=== PATIENT | female | born 1990 | race Caucasian/White ===

== ENCOUNTER 2022-08-14 16:45 | Outpatient (CLI) | payer OTHER, SELFPAY ==
[2022-08-14 17:08] VITALS: PULSE 74; O2SAT 98
[2022-08-14 17:18] VITALS: PULSE 67; TEMP 37.3; O2SAT 97; O2SAT 98
[2022-08-14 17:19] VITALS: BP 114/64; PULSE 73
[2022-08-14 17:43] VITALS: BMI 28.7
[2022-08-14 18:13] LABS: ROM Internal Control Test YES-OK TO RESULT pt. (Internal QC); ROM Patient Test Negative (Negative)
--- NOTE | 2022-08-15 02:16 | OB.TRI.PN ---
Progress Notes Progress Note: at 23w5d Presented to labor and delivery for possible rupture of membranes. Was working and felt a large gush of fluid. No vaginal bleeding, good movement and no contractions. Laboratory Studies: Laboratory Tests 08/14/22 Range/Units 17:25 Vag Amniotic Fld Detect Negative (Negative) FHR 135 Assessment & Plan (1) Vaginal discharge during : (2) 23 weeks gestation of : PLAN: Plan 1) ROM plus negative and not grossly ruptured. 2) PTL precautions reviewed 3) D/C home
== END 2022-08-14 18:25 | disposition home or self-care (01) ==
LOC: WP 17:06 → WPOUT 17:06
PROVIDERS: PCP Internal Medicine; Referring Provider Advanced Practice Midwife; Visit Provider Advanced Practice Midwife
DX: O23.592 Infection of other part of genital tract in pregnancy, second trimester (principal); Z3A.23 23 weeks gestation of pregnancy
CPT/HCPCS: 59025; 59050; 84112; 99221; G0378

== ENCOUNTER 2022-11-30 06:50 | Inpatient (IN) | payer OTHER, SELFPAY ==
[2022-11-30] VITALS (48 sets, daily range): BP systolic 93–127; BP diastolic 50–81; PULSE 67–107; TEMP 36.2–37; O2SAT 83–100; BMI 34.3
--- NOTE | 2022-11-30 08:06 | HP.PCM.OB_ITS ---
HPI - General General Date of Admission: 11/30/22 HPI Narrative MARIBEL KAN, is a 32 F who presents at 39.1 weeks gestation for elective induction of labor. complicated by anemia, thrombocytopenia, uterine fibroid, and LGA. Dilapan placed yesterday in office. Maternal Data Information KARTHIK Calculator Estimated Delivery Date Method Current WG Current Estimate 12/06/22 Manual 39w 1d PFSH PFSH Medical History Anxiety Depression Folliculitis Former smoker Uterine fibroid Home Medications Aspir-81 81 mg PO.IVFORM DAILY 08/14/22 [History Last Taken Unknown] Prenatabs FA 1 tab PO.IVFORM DAILY 08/14/22 [History Last Taken Unknown] loratadine 10 mg tablet (Claritin) 10 mg PO DAILY allergies 11/30/22 [History Last Taken 11/30/22 06:15] Allergy/AdvReac Type Severity Reaction Status Date / Time Penicillins Allergy Severe Hives Verified 11/30/22 07:23 Family History Brother Autism Grandmother Diabetes CAD (coronary artery disease) Grandfather CAD (coronary artery disease) Aunt Spina bifida Mother H/O thyroidectomy Other Cystic fibrosis Visit Details OB Flowsheet Initial Weight: Not Recorded Date -?-?-?-?-?-?-?-?-?-?-?-?- EGA Weight BP Urine Prot -?-?-?-?-?-?-?-?-?-?-?-?- Glucose FHR FuHt Pres Dilation -?-?-?-?-?-?-?-?-?-?-?-?- Effaced St Visit Note 11/30/22 -?-?-?-?-?-?-?-?-?-?-?-?- 39w 1d 213 lb -?-?-?-?-?-?-?-?-?-?-?-?- -?-?-?-?-?--?-?-?-?-?-?-?- ROS Eyes Eyes: Denies blurry vision, change in vision or spots in vision ENT HEENT: Denies dizziness or headache(s) Cardiovascular Cardiovascular: Denies abdominal pain, chest pain or dyspnea Respiratory/Chest Respiratory/Chest: Denies cough, dyspnea, shortness of breath at rest or shortness of breath with exertion Gastrointestinal Gastrointestinal: Denies abdominal pain, diarrhea or vomiting Genitourinary Genitourinary: Denies change in urinary stream, difficulty urinating or dysuria Musculoskeletal Musculoskeletal: Reports none Integumentary Integumentary: Denies rash Neurologic Neurologic: Denies dizziness, headache(s), memory loss or weakness Psychiatric Psychiatric: Reports none Vital Signs Vital Signs Vital Signs: Weight Weight: 213 lb Body Mass Index (BMI) 34.3 Physical Exam Const alert, oriented x3 and no apparent distress General Appearance: cooperative Orientation / Consciousness: awake Exam Limitations: no limitations HEENT normocephalic Head and Scalp: normal to inspection Eyes General Eye: normal appearance of both eyes Neck full ROM and no lymphadenopathy Lymph Lymphatic: no lymphadenopathy noted Chest inspection of chest normal Resp normal respiratory effort, normal air movement and clear to auscultation bilaterally Effort and Inspection: able to speak in complete sentences and symmetric chest movement Cardio regular rate and regular rhythm GI normal to inspection, nondistended, normoactive bowel sounds Manual OB Exam: presentation cephalic Back/Spine normal ROM Extremity full ROM and no calf tenderness Skin no rashes or lesions noted General Skin Exam: no breakdown Neuro oriented x3 and CN's II-XII intact bilaterally Psych mental status grossly normal and thought process normal Labs Labs Labs: No Data to Display GBS negative Assessment & Plan (1) Encounter for induction of labor: (2) 39 weeks gestation of : (3) Anemia affecting , antepartum: (4) Uterine fibroid: (5) Thrombocytopenia affecting : (6) LGA (large for gestational age) fetus affecting management of mother: PLAN: Plan Admit to L&D Start IV and run fluids per orders Dilapan- 5 rods removed without incident CE /-2 Start Pitocin IV at 2 mu/min and increase per orders GBS negative Epidural when indicated AROM after epidural placement Dr. Mazariegos notified of admission and is collaborating physician
[2022-11-30 09:00] LABS: Absolute Lymphocyte Count 1.23 X10^3/uL (0.83-4.51); Absolute Neutrophil Count 7.8 X10^3/uL (2.0-7.7); Basophil# 0.04 X10^3/uL; Basophil% 0.4 % (0-1); Eosinophil# 0.18 X10^3/uL; Eosinophils% 1.8 % (0-5); Hematocrit 37.5 % (37-47); Hemoglobin 12.8 g/dL (12.0-15.0); Lymphocyte # 1.23 X10^3/ul (0.83-4.51); Lymphocyte % 12.4 % (19-41); Mean Corp Hgb Conc 34.1 g/dL (32-36); Mean Corpuscular Hgb 31.6 pg (27.0-32.0); Mean Corpuscular Volume 92.6 fL (81-99); Mean Platelet Vol. 11.7 fl (6.2-12.0); Monocyte# 0.62 X10^3/uL; Monocyte% 6.2 % (0-10); NRBC Flagged by Analyzer 0 % (0-5); Neutrophil % 78.4 % (47-70); Platelet Count 126 K/mm3 (150-450); RBC Distribution Width CV 14.2 % (11.6-14.6); Red Blood Count 4.05 M/mm3 (4.2-5.4)
[2022-11-30] MEDS: Lactated Ringers 1,000 ML 200 ML IV ×3 (09:30→20:09)
[2022-11-30] MEDS: Oxytocin 15 Units/NS 250ml 15 UNITS/250 ML IV.SOLN 2 UNITS IV (09:34)
[2022-11-30 09:41] LABS: Syphilis Antibodies Non-reactive
[2022-11-30] MEDS: LACTATED RINGERS 500 ML 999 ML IV ×2 (14:54→18:33)
[2022-11-30] MEDS: fentaNYL-bupivacaine (epidural) 100 ML BAG EPIDURAL ×2 (15:38→20:02)
--- NOTE | 2022-11-30 18:33 | PCM.PN.OB ---
Subjective Subjective Patient seen at bedside. Comfortable with epidural. Objective Data Objective Data Vital Signs: Vital Signs Temp Pulse BP Pulse Ox 97.1 F L 74 93/50 L 99 11/30/22 18:11 11/30/22 18:20 11/30/22 18:20 11/30/22 16:48 Weight: 213 lb Body Mass Index (BMI) 34.3 Intake & Output: Intake and Output for Last 24 Hours 11/28/22 11/29/22 11/30/22 23:59 23:59 23:59 Intake Total 1547.84 / 1547.84 Output Total 700 / 700 Balance 847.84 / 847.84 Lab / Micro Data Result Diagrams: 11/30/22 08:40 Labs: Laboratory Results - last 24 hr 11/30/22 08:40: WBC 10.0, RBC 4.05 L, Hgb 12.8, Hct 37.5, MCV 92.6, MCH 31.6, MCHC 34.1, RDW Std Deviation 48.0 H, RDW Coeff of Emilia 14.2, Plt Count 126 L, MPV 11.7, Immature Gran % (Auto) 0.800, Neut % (Auto) 78.4 H, Lymph % (Auto) 12.4 L, [place] % (Auto) 6.2, Eos % (Auto) 1.8, Baso % (Auto) 0.4, Absolute Neuts (auto) 7.8 H, Absolute Lymphs (auto) 1.23, Nucleated RBC % 0 11/30/22 08:40: Blood Type O POSITIVE, Antibody Screen NEGATIVE 11/30/22 08:40: Syphilis Total Ab Non-reactive ROS Eyes Eyes: Denies blurry vision, change in vision or spots in vision ENT HEENT: Denies dizziness or headache(s) Cardiovascular Cardiovascular: Denies abdominal pain, chest pain or dyspnea Respiratory/Chest Respiratory/Chest: Denies cough, dyspnea, shortness of breath at rest or shortness of breath with exertion Gastrointestinal Gastrointestinal: Denies abdominal pain, diarrhea or vomiting Genitourinary Genitourinary: Denies change in urinary stream, difficulty urinating or dysuria Musculoskeletal Musculoskeletal: Reports none Integumentary Integumentary: Denies rash Neurologic Neurologic: Denies dizziness, headache(s), memory loss or weakness Physical Exam Const alert and no apparent distress General Appearance: cooperative and comfortable Exam Limitations: no limitations HEENT normocephalic Eyes General Eye: normal appearance of both eyes Neck full ROM General: normal visual inspection Chest Chest: symmetrical chest wall rise Resp normal respiratory effort and normal air movement Effort and Inspection: symmetric chest movement Auscultation: clear to auscultation bilaterally Cardio regular rate and regular rhythm GI normal to inspection, nondistended, normoactive bowel sounds Back/Spine normal ROM Extremity full ROM and no calf tenderness General Extremity: normal exam except as noted Skin no rashes or lesions noted Neuro CN's II-XII intact bilaterally Psych mental status grossly normal Assessment & Plan (1) Spontaneous rupture of amniotic membranes: (2) Uterine fibroid: (3) LGA (large for gestational age) fetus affecting management of mother: (4) 39 weeks gestation of : (5) Encounter for induction of labor: PLAN: Plan SROM for clear fluid at 1445 CE 6/-2 Forebag ruptured and IUPC placed Cat. 1 tracing Pitocin at 12 mu /min - continue to increase per orders Continue position changes Anticipate
[2022-11-30] MEDS: Ondansetron 4 MG/2 ML Vial IV (21:03)
[2022-12-01] VITALS (26 sets, daily range): BP systolic 98–128; BP diastolic 54–70; PULSE 90–132; RESP 15–16; TEMP 36.3–37.3; O2SAT 97–100
[2022-12-01] MEDS: fentaNYL-bupivacaine (epidural) 100 ML BAG EPIDURAL ×2 (00:18→05:18)
[2022-12-01] MEDS: Oxytocin 15 Units/NS 250ml 15 UNITS/250 ML IV.SOLN 20 UNITS IV (03:15)
[2022-12-01] MEDS: Lactated Ringers 1,000 ML 200 ML IV (03:57)
[2022-12-01] MEDS: Oxytocin 15 Units/NS 250ml 15 UNITS/250 ML IV.SOLN 83 UNITS IV (07:30)
[2022-12-01] MEDS: Oxytocin 15 Units/NS 250ml 15 UNITS/250 ML IV.SOLN 167 UNITS IV (07:56)
--- NOTE | 2022-12-01 08:24 | OP.PCM_ITS ---
Assessment & Plan (1) (spontaneous vaginal delivery): (2) Laceration, obstetrical, second degree: (3) Care and examination of lactating mother: (4) Uterine fibroid: (5) Thrombocytopenia affecting : (6) LGA (large for gestational age) fetus affecting management of mother: Maternal Data Information KARTHIK Calculator Estimated Delivery Date Method Current WG Current Estimate 12/06/22 Manual 39w 2d Hungry Horse Doctor Who Attended Delivery: KelliShyam Vaginal Delivery Maternal Presentation Maternal Presentation: Elective Induction Maternal Presentation: at 39.1 weeks gestation for induction of labor for LGA. Dilapan placed in office. Type of Induction: Pitocin and - (Dilapan) Operative Information Date of Procedure: 12/01/22 Pre-Operative Diagnosis: Term gestation, induction of labor Post-Operative Diagnosis: , Live female Surgery / Procedure Performed: Spontaneous Vaginal Delivery Type of Anesthesia: Epidural Drain: Noriega to straight drain Estimated Blood Loss: 400 Time of Delivery: 07:20 Findings Description of Procedure: Patient pushing well with contractions. Dr. Mazariegos on unit and called to room during delivery. With good maternal effort, head delivered followed by anterior shoulder and remainder of body with minimal downward traction for less than 30 seconds. Cord clamped and cut immediately due to color and tone. Blacksmith Assistant in room. to warmer. Pitocin IV started for active management of the third stage of labor. Placenta delivered spontaneously and intact. Cord blood collected and sent. Second degree vaginal lacerations repaired in usual fashion using 3-0 Vicryl Rapid. Hemostasis obtained. Infant brought to patient and placed skin to skin. Fundus firm 2 below U. EBL [address] Mazariegos present for delivery. Presentation: Vertex Amniotic Membrane Rupture Type: Spontaneous Time of Membrane Rupture: 1445 Amniotic Fluid Description: Clear Placental Delivery Description: Spontaneous Placenta Disposition: [facility] Cord Vessel Description: 3 Vessels Cord Entanglement: Around neck x 1, loose Nuchal Cord Compression: Without compression Infant A Gender: Female (1 minute): 2 (5 minute): 9 Delayed Cord Clamping: No Post Vaginal Delivery Medications Given After Delivery: IV Pitocin Episiotomy Description: None Laceration: Vaginal Extension/lac and 2nd degree Complication Complications: None
[2022-12-01] MEDS: Ibuprofen 600 MG Tablet PO (13:50)
[2022-12-01] MEDS: Loratadine 10 MG Tablet PO (13:56)
--- NOTE | 2022-12-01 16:44 | CASEMGMT ---
Social Work Assessment Labor and Delivery Unit Patient Address [address] [place] [address]: Phone number: [phone] Date of Referral: 12/01/22 Time of Referral:? 829 Referred By: Nursing staff Date of Intervention: ??12/01/22 Time of Intervention:? 1529 Reason for Referral:? Verbal notification from nursing staff MOB would benefit from sw involvement due to anxiety. History obtained from: medical records and mother of baby (MOB) Kary and father of baby (FOB) Sean? Household composition:Residing at family home is parents and new baby, name not decided yet (Kristi Quinteros or Sruthi Quinteros) Patient's parent/guardian status:? Parents report that they have been together for 12 years, for almost two. FOB is involved and MOB reports is a big support for her. MOB denies DV/ abuse, reports that she is safe at home. Medical History: MOB reports that she has fibroids and as a result struggled with getting . Baby is first and delivery for mom, and first child for FOB. MB was induced and delivered baby on 12/01/22. Baby weighs 4435 grams and her apgars were 2 at one minute and 9 at five minutes. MOB reports that she delivered baby's head and then had body dystocia. Baby required PPV following delivery and then transitioned to room air. ? Educational Status:?Both parents graduated from high school and obtained college degrees in teaching. Neither parent has learning difficulties or problems with reading or writing. 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 She gets the summer off for maternity leave. 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 Supplies:??Parents report they have obtained all necessary baby items including crib, car seat, clothes, diapers and wipes. Parents state they had their baby shower over Memorial Day weekend and were able to check off almost everything they needed for baby off of their list. Childcare/Caregiver(s):? Parents report that they will be primary caregivers to patient until MOB returns to work the next school year. MOB states that she is not sure what they are planning to do for childcare at this time. They have friends and family members who are involved. Transportation:?? Both parents have their drivers license and reliable transportation. No transportation barriers at this time. Programs/Agencies Involved: ?None Children Services/Legal Issues:??? No prior involvement, no concerns warranting referral at this time. Behavioral Health Issues: ??Mental Health History:?FOElsy denies mental health history. MOB disclosed that she has been diagnosed with anxiety and depression. Sw educated parents on signs and symptoms of baby blues and post depression. Sw asked FOB to step out while sw provided MOB with [place] Depression Scale. MOB completed screen and her score was a 6. Sw encouraged MOB to get connected to community mental health supports and provided MOB with list of counseling agencies in [facility]. MOB stated that she is is appreciative of resources provdied. Sw also provided MOB with literature on and depression and anxiety. MOB denies current and history of SI. ?? Substance Use History:??MOB denies. Family History:???MOB denies family substance use history. ?Drug Screens: urine screen was negative. Family/Social Stressors:? MOB and FOB deny stressors at this time. Support Systems: Parents report they have a lot of friend and family who are supportive. Depression/Shaken Baby/Safe Sleeping: Sw provided education and information on signs and symptoms of baby blues and post depression. FOB is very supportive to MOB. Sw educated parents on shaken baby and ABC's of safe sleep. MOB asked questions regarding safe sleep using a pack n play. ASSESSMENT:? Parents engaged and interactive during assessment. Parents respectful towards each other and both observed interacting with baby attentively and lovingly. Parents open and receptive to sw involvement and support. PLAN:? MOB and to be discharged when medically ready. ?No other services requested or indicated. Yaneth Lorenz, SKI TOPPER, TIE UP WORKER
--- NOTE | 2022-12-01 17:04 | CASEMGMT ---
Maryse BELL met with MOB and FOB at bedside. Due to maternal mental health history of anxiety and depression, [place] Depression Scale completed. MOB score is 6. Resources provided for counseling agencies in [facility]. Yaneth Lorenz, FLIGHT RADIO OPERATOR, HEAT AND FROST INSULATOR HELPER
[2022-12-01] MEDS: Acetaminophen 500 MG Tablet 1000 MG PO (23:06)
[2022-12-02 04:00] VITALS: BP 110/74; PULSE 99; RESP 15
[2022-12-02] MEDS: Ibuprofen 600 MG Tablet PO ×3 (04:05→21:57)
[2022-12-02 09:37] VITALS: BP 117/72; PULSE 72; RESP 16; TEMP 36.4; O2SAT 98
--- NOTE | 2022-12-02 10:44 | PCM.PN.OB ---
Subjective Subjective Pt is doing well. Ambulating and voiding without difficulty. Having some vaginal soreness and discomfort. Tolerating regular diet without nausea or vomiting. No bowel movement yet. Lochia is normal. She denies lightheadedness, dizziness, chest pain, shortness of breath, leg pain. She desires to stay another night. Objective Data Objective Data Vital Signs: Vital Signs Temp Pulse Resp BP Pulse Ox O2 Del Method 97.5 F L 72 16 117/72 98 Room Air 12/02/22 09:37 12/02/22 09:37 12/02/22 09:37 12/02/22 09:37 12/02/22 09:37 12/02/22 09:37 Oxygen Delivery Method Room Air Weight: 213 lb Body Mass Index (BMI) 34.3 Intake & Output: Intake and Output for Last 24 Hours 11/30/22 12/01/22 12/02/22 23:59 23:59 23:59 Intake Total 3135.14 / 3135.14 2180.49 / 2180.49 Output Total 1100 / 1100 1600 / 1600 Balance 2035.14 / 2035.14 580.49 / 580.49 Lab / Micro Data Result Diagrams: 11/30/22 08:40 11/30/22 20:20 Physical Exam Const alert and no apparent distress General Appearance: comfortable Assessment & Plan (1) (spontaneous vaginal delivery): PLAN: Patient is day 1 from a vaginal delivery. Doing well other than some vaginal soreness. Baby is in special care nursery. Discussed option for discharge to hotel status today. Patient desires to stay admitted overnight. Anticipate discharge tomorrow. (2) Laceration, obstetrical, second degree:
[2022-12-02] MEDS: Loratadine 10 MG Tablet PO (12:08)
[2022-12-02 14:48] VITALS: BP 107/61; PULSE 85; RESP 16; TEMP 36.8; O2SAT 100
[2022-12-02 19:30] VITALS: BP 116/69; PULSE 84; RESP 15; TEMP 36.6; O2SAT 99
[2022-12-03 01:20] VITALS: BP 107/60; PULSE 76; RESP 24; TEMP 36.6; O2SAT 96
--- NOTE | 2022-12-03 05:38 | PCM.PN.OB ---
Subjective Subjective Doing well. Pain is well controlled. Still having some vaginal soreness. Lochia is normal. She is ambulating and voiding without difficulty. She offers no complaints this morning. Objective Data Objective Data Vital Signs: Vital Signs Temp Pulse Resp BP Pulse Ox O2 Del Method 98 F 76 24 H 107/60 96 Room Air 12/03/22 01:20 12/03/22 01:20 12/03/22 01:20 12/03/22 01:20 12/03/22 01:20 12/03/22 01:20 Oxygen Delivery Method Room Air Weight: 213 lb Body Mass Index (BMI) 34.3 Intake & Output: Intake and Output for Last 24 Hours 12/01/22 12/02/22 12/03/22 23:59 23:59 23:59 Intake Total 2180.49 / 2180.49 Output Total 1600 / 1600 Balance 580.49 / 580.49 Lab / Micro Data Result Diagrams: 11/30/22 08:40 11/30/22 20:20 Physical Exam Const alert and no apparent distress General Appearance: comfortable Resp normal respiratory effort GI soft to palpation and non-tender Assessment & Plan (1) (spontaneous vaginal delivery): PLAN: Patient is day 2 from vaginal delivery. Baby is in special care nursery. She is doing well and meeting milestones for discharge. Discharge instructions were reviewed. (2) Laceration, obstetrical, second degree:
--- NOTE | 2022-12-03 05:42 | DCINST_ITS ---
Discharge Instructions Diet Discharge Diet: No restrictions Activity Discharge Activity: Return to Normal Activity May resume sexual activity in: 6 weeks Ice area for (Minutes): 15 Weight Bearing Status: Weight bearing as tolerated Lifting Restrictions: Nothing heavier than baby Dressing / Incision Call your doctor if you observe: Fever of 101 or Higher, Coldness, Increased Pain, Numbness or Tingling, Change in Color, Inability to urinate, Inability to have a bowel movement, Using more than 1 pad per hour, Shortness of breath, Dizziness, Fainting spells, Swelling in the ankles, Chest pain, Increased palpitations (irregular heartbeat), Calf discomfort and Uncontrolled pain Cleanse incision/area with: Soap & Water Follow Up Care When: 1-2 weeks for early visit 6 weeks for visit Test Results: Test results from this visit will be discussed in further detail at your follow- up appointment, if applicable. Discharge Plan Admission Admit Date/Time: 11/30/22 06:50 Primary Reason for Your Visit: delivery Attending Provider: Shereen Oakley Primary Care Provider: Dyan Taylor Instructions Patient Instructions: After a Vaginal Discharge Orders/Prescriptions Prescriptions: New docusate sodium [Colace] 100 mg capsule 100 mg PO BID Qty: 30 0RF ibuprofen 600 mg tablet 600 mg PO Q6H PRN (Reason: pain) Qty: 30 0RF Continued Prenatabs FA 1 tab PO.IVFORM DAILY loratadine [Claritin] 10 mg Tablet 10 mg PO DAILY Discontinued Aspir-81 81 mg PO.IVFORM DAILY Referrals / Follow Up: Dyan Taylor MD [Primary Care Provider] - Disposition Disposition (needs filled in before D/C Order can be placed): Home, Self Care
--- NOTE | 2022-12-03 05:44 | DS.PCM_ITS ---
Providers Date of Admission: 11/30/22 Date of Discharge: 12/03/22 Primary Care Physician: Dr. Dyan Taylor MD Reason For Visit: VAG DELIVERY Diagnosis Discharge Diagnosis (1) (spontaneous vaginal delivery): Status: Acute Code(s): O80 - Encounter for full-term uncomplicated delivery Plan: Patient is day 2 from vaginal delivery. Baby is in special care nursery. She is doing well and meeting milestones for discharge. Discharge instructions were reviewed. (2) Laceration, obstetrical, second degree: Status: Acute Code(s): O70.1 - Second degree perineal laceration during delivery Medications at Discharge Home Medications Prenatabs FA 1 tab PO.IVFORM DAILY 08/14/22 loratadine 10 mg tablet (Claritin) 10 mg PO DAILY allergies 11/30/22 docusate sodium 100 mg capsule (Colace) 100 mg PO BID #30 caps 12/02/22 ibuprofen 600 mg tablet 600 mg PO Q6H PRN pain #30 tabs 12/03/22 Hospital Course Operations None Procedures - (Vaginal delivery) Summary of Care Provided Hospital Course: Patient presented at 39 weeks gestation for an elective induction of labor for LGA fetus. She had a spontaneous vaginal delivery. See operative report for details. On day 2 she was discharged home in good condition with follow-up in the office. Weight / BMI Weight Weight: 213 lb Body Mass Index (BMI) 34.3 ABG / Lab / Microbiology Data Result Diagrams: 11/30/22 08:40 11/30/22 20:20 D/C Instructions Discharge Diet: No restrictions May resume sexual activity in: 6 weeks Ice area for (Minutes): 15 Weight Bearing Status: Weight bearing as tolerated Call your doctor if you observe: Fever of 101 or Higher, Coldness, Increased Pain, Numbness or Tingling, Change in Color, Inability to urinate, Inability to have a bowel movement, Using more than 1 pad per hour, Shortness of breath, Diz ziness, Fainting spells, Swelling in the ankles, Chest pain, Increased palpitations (irregular heartbeat), Calf discomfort and Uncontrolled pain Cleanse incision/area with: Soap & Water When: 1-2 weeks for early visit 6 weeks for visit Meaningful Use Info Meaningful Use Diagnoses (Choose all that apply): None applicable Discharge Plan Admission Admit Date/Time: 11/30/22 06:50 Primary Reason for Your Visit: delivery Attending Provider: Shereen Oakley Primary Care Provider: Dyan Taylor Instructions Patient Instructions: After a Vaginal Discharge Orders/Prescriptions Prescriptions: New docusate sodium [Colace] 100 mg capsule 100 mg PO BID Qty: 30 0RF ibuprofen 600 mg tablet 600 mg PO Q6H PRN (Reason: pain) Qty: 30 0RF Continued Prenatabs FA 1 tab PO.IVFORM DAILY loratadine [Claritin] 10 mg Tablet 10 mg PO DAILY Discontinued Aspir-81 81 mg PO.IVFORM DAILY Referrals / Follow Up: Dyan Taylor MD [Primary Care Provider] - Disposition Disposition (needs filled in before D/C Order can be placed): Home, Self Care
--- NOTE | 2022-12-03 07:25 | NURSING ---
report given to Nick Mckeon RN who is assuming care of pt at this time
[2022-12-03 08:30] VITALS: BP 102/60; PULSE 77; RESP 16; TEMP 36.4; O2SAT 98
[2022-12-03] MEDS: Ibuprofen 600 MG Tablet PO (11:29)
[2022-12-03] MEDS: Loratadine 10 MG Tablet PO (11:29)
[2022-12-03] MEDS: Senna/Docusate Sodium 1 Tablet PO (11:30)
--- NOTE | 2022-12-03 12:39 | CON.PCM.LA_ITS ---
Assessment & Plan Assessment/Plan (1) Care and examination of lactating mother: PLAN: Educated on latching, pumping, hand expressing, shield use. will assist with feeds in SCN tomorrow. HPI Consult Data Date of Consult: 12/03/22 HPI Narrative HPI Narrative: MARIBEL KAN, is a 32 F who presents difficulty, pumping. History provided by the patient. [facility] Medical History Anxiety Depression Folliculitis Former smoker Uterine fibroid Home Medications Prenatabs FA 1 tab PO.IVFORM DAILY 08/14/22 [History Last Taken Unknown] loratadine 10 mg tablet (Claritin) 10 mg PO DAILY allergies 11/30/22 [History Last Taken 11/30/22 06:15] docusate sodium 100 mg capsule (Colace) 100 mg PO BID #30 caps 12/02/22 [Rx Last Taken Unknown] ibuprofen 600 mg tablet 600 mg PO Q6H PRN pain #30 tabs 12/03/22 [Rx Last Taken Unknown] Allergy/AdvReac Type Severity Reaction Status Date / Time Penicillins Allergy Severe Hives Verified 11/30/22 07:23 Family History Brother Autism Grandmother Diabetes CAD (coronary artery disease) Grandfather CAD (coronary artery disease) Aunt Spina bifida Mother H/O thyroidectomy Other Cystic fibrosis Social History Smoking Status: Former smoker ROS Constitutional Constitutional: Denies fatigue or fever(s) Integumentary Integumentary: Reports other Details: attempting to latch baby in SCN with each feed- difficulty latching at breast, has tried nipple shield, q 3 hours pumping- was getting drops and last pump getting 7 cc, breasts starting to feel more fu ll, denies any nipple pain ; Denies rash Exam General alert Respiratory Respiratory: normal respiratory effort Skin normal color and Negative for rash bilateral breasts soft, bilateral nipples slight reddened, no cracking present IBCLC Feeding Assessment Feeding Assessment Mother's feeding plans during 's hospitalization: Breastfeed Feeding Plan Feeding Plan: Continue to feed q 3 hours, offering breast and then pumping, baby being weaned off of IV today Interventions IBCLC/CLC Interventions: Nipple shield (has attempted to latch with and without shield, per mother was educated when shield was given ), Pumping, Hand expression and Breast Massage Education IBCLC/CLC Education: How to perform hand expression and [id number] Charges/Coding Visit Charges Inpatient E&M: 67195 Init Hosp L1
[2022-12-03 16:28] VITALS: BP 131/67; PULSE 76; RESP 16; TEMP 37.2; O2SAT 98
[2022-12-03] MEDS: Acetaminophen 500 MG Tablet 1000 MG PO (17:02)
== END 2022-12-03 17:00 | disposition home or self-care (01) | DRG 806 ==
PROVIDERS: Admitting Provider Advanced Practice Midwife; PCP Internal Medicine; Referring Provider Advanced Practice Midwife; Visit Provider Advanced Practice Midwife
DX: O36.63X0 Maternal care for excessive fetal growth, third trimester, not applicable or unspecified (principal); Z37.0 Single live birth; O99.12 Other diseases of the blood and blood-forming organs and certain disorders involving the immune mechanism complicating childbirth; D69.6 Thrombocytopenia, unspecified; O34.13 Maternal care for benign tumor of corpus uteri, third trimester; D25.9 Leiomyoma of uterus, unspecified; O69.2XX0 Labor and delivery complicated by other cord entanglement, with compression, not applicable or unspecified; O99.02 Anemia complicating childbirth; O70.1 Second degree perineal laceration during delivery; Z3A.39 39 weeks gestation of pregnancy; Z87.891 Personal history of nicotine dependence
CPT/HCPCS: 59025; 59050; 85025; 86780; 86850; 86900; 86901; 99221; J7120; G0378; J2405

== ENCOUNTER 2024-12-11 15:10 | Outpatient (CLI) | payer OTHER, SELFPAY ==
[2024-12-11] VITALS (8 sets, daily range): BP systolic 122–138; BP diastolic 67–76; PULSE 71–86; RESP 18; TEMP 37; O2SAT 99; BMI 34.1
[2024-12-11 16:14] LABS: Hematocrit 35.4 % (37-47); Hemoglobin 12.4 g/dL (12.0-15.0); Mean Corp Hgb Conc 35.0 g/dL (32-36); Mean Corpuscular Volume 91.0 fL (81-99); Mean Platelet Vol. 12.1 fl (6.2-12.0); Platelet Count 125 K/mm3 (150-450); RBC Distribution Width CV 12.7 % (11.6-14.6); RBC Distribution Width SD 41.5 fl (35.1-43.9); Red Blood Count 3.89 M/mm3 (4.2-5.4); White Blood Count 7.8 K/mm3 (4.4-11.0)
[2024-12-11 16:44] LABS: AST(SGOT) 29 U/L (<=31); Alanine Aminotransfer ALT/SGPT 31 U/L (<=34); Estimated Creatinine Clearance 134.86 ml/min (50-250)
[2024-12-11 16:54] LABS: Creatinine, Urine (random) 103.00 mg/dL (28.00-217.00); Protein, Urine (Random) 40.1 mg/dL (0.0-12.0); Protein:Creat Ratio 389 mg/g CRE (0-200)
[2024-12-11 17:34] LABS: Uric Acid 5.3 mg/dL (2.6-6.0)
== END 2024-12-11 18:15 | disposition home or self-care (01) ==
LOC: WPOUT 15:11 → WP 15:11
PROVIDERS: PCP Internal Medicine; Referring Provider Obstetrics & Gynecology; Visit Provider Obstetrics & Gynecology
DX: O36.63X0 Maternal care for excessive fetal growth, third trimester, not applicable or unspecified (principal); Z87.891 Personal history of nicotine dependence; Z3A.38 38 weeks gestation of pregnancy; O12.13 Gestational proteinuria, third trimester
CPT/HCPCS: 36415; 59025; 59050; 82565; 82570; 84156; 84450; 84460; 84550; 85027; 99221; G0378

== ENCOUNTER 2024-12-13 09:49 | Inpatient (IN) | payer OTHER, SELFPAY ==
[2024-12-13] VITALS (16 sets, daily range): BP systolic 112–148; BP diastolic 67–91; PULSE 55–92; RESP 14–20; TEMP 35.9–36.8; O2SAT 16–100; BMI 34.7
[2024-12-13 12:03] LABS: Hematocrit 34.2 % (37-47); Hemoglobin 12.0 g/dL (12.0-15.0); Immature Granulocytes Count 0.050 X10^3/uL (0.0-0.0); Mean Corp Hgb Conc 35.1 g/dL (32-36); Mean Corpuscular Volume 90.5 fL (81-99); Mean Platelet Vol. 12.5 fl (6.2-12.0); NRBC Flagged by Analyzer 0 % (0-5); Platelet Count 122 K/mm3 (150-450); RBC Distribution Width CV 12.6 % (11.6-14.6); RBC Distribution Width SD 41.4 fl (35.1-43.9); Red Blood Count 3.78 M/mm3 (4.2-5.4); White Blood Count 6.3 K/mm3 (4.4-11.0)
[2024-12-13 12:42] LABS: Syphilis Antibodies Nonreactive (Nonreactive)
[2024-12-13] MEDS: Lactated Ringers 1,000 ML 999 ML IV (14:00)
[2024-12-13] MEDS: Lactated Ringers 1,000 ML 150 ML IV (15:01)
[2024-12-13] MEDS: Clindamycin 900 MG/50 ML BAG 75 MG IV (16:26)
[2024-12-13] MEDS: Gentamicin IV 310 MG in Dextrose 5%-Water (50mL Bag) 50 ML 100 MG IV (16:36)
[2024-12-13] MEDS: Oxytocin 15 Units/NS 250ml 15 UNITS/250 ML IV.SOLN 83 UNITS IV (18:00)
[2024-12-13] MEDS: Ketorolac 30 MG/ML Syringe IV ×2 (18:56→23:54)
[2024-12-13] MEDS: 0.9% Saline Lock 10 ML Syringe IV ×2 (20:45→23:54)
[2024-12-14] VITALS (7 sets, daily range): BP systolic 99–114; BP diastolic 55–80; PULSE 61–79; RESP 16; TEMP 36.2–36.6; O2SAT 96–100
[2024-12-14] MEDS: Lactated Ringers 1,000 ML 100 ML IV (00:36)
[2024-12-14] MEDS: 0.9% Saline Lock 10 ML Syringe IV ×3 (00:39→13:21)
[2024-12-14] MEDS: Clindamycin 900 MG/50 ML BAG 75 MG IV (01:06)
[2024-12-14] MEDS: Ketorolac 30 MG/ML Syringe IV (05:53)
[2024-12-14 06:27] LABS: Hematocrit 28.0 % (37-47); Hemoglobin 9.6 g/dL (12.0-15.0); Mean Corp Hgb Conc 34.3 g/dL (32-36); Mean Corpuscular Volume 92.4 fL (81-99); Mean Platelet Vol. 12.6 fl (6.2-12.0); Platelet Count 101 K/mm3 (150-450); RBC Distribution Width CV 12.7 % (11.6-14.6); RBC Distribution Width SD 42.9 fl (35.1-43.9); Red Blood Count 3.03 M/mm3 (4.2-5.4); White Blood Count 7.7 K/mm3 (4.4-11.0)
[2024-12-14] MEDS: Senna/Docusate Sodium 1 Tablet PO (11:57)
[2024-12-15 02:58] VITALS: BP 124/80; PULSE 77; RESP 16; TEMP 36.8; O2SAT 99
[2024-12-15 09:03] VITALS: BP 119/72; PULSE 90; RESP 16; TEMP 36.4; O2SAT 98
[2024-12-15] MEDS: Senna/Docusate Sodium 1 Tablet PO (09:13)
[2024-12-15 14:00] VITALS: BP 119/78; PULSE 86; RESP 16; TEMP 36.8; O2SAT 98
== END 2024-12-15 16:25 | disposition home or self-care (01) | DRG 788 ==
PROVIDERS: Admitting Provider Obstetrics & Gynecology; PCP Internal Medicine; Visit Provider Obstetrics & Gynecology
DX: O36.63X0 Maternal care for excessive fetal growth, third trimester, not applicable or unspecified (principal); O14.95 Unspecified pre-eclampsia, complicating the puerperium; O34.593 Maternal care for other abnormalities of gravid uterus, third trimester; N80.02 Deep endometriosis of the uterus; Z37.0 Single live birth; Z3A.38 38 weeks gestation of pregnancy; Z87.891 Personal history of nicotine dependence; Z87.59 Personal history of other complications of pregnancy, childbirth and the puerperium
CPT/HCPCS: 59025; 59050; 85025; 85027; 86780; 86850; 86900; 86901; 99221; A4216; G0378; J2405